=== PATIENT | male | born 2000 | race Hispanic/Latino ===

== ENCOUNTER 2023-09-29 18:54 | Emergency (ER) | payer OTHER, SELFPAY ==
[2023-09-29 18:55] VITALS: BP 147/86; PULSE 104; RESP 17; TEMP 36.8; O2SAT 99; BMI 25.9
--- NOTE | 2023-09-29 19:27 | EX.ED.DYSGE1 ---
HPI History of Present Illness Chief Complaint: Abd Pain Informant: patient Onset/Context/Timing Onset: Yesterday Context: Sudden Onset Timing: Continuous Quality: Tightness Location: Lower chest, upper abdomen Worsened by: Laying down Relieved by: Nothing Narrative Narrative: Patient presents with lower chest and upper abdominal pain that began yesterday. Patient states it began when he woke up yesterday. Patient states it has been constant. Patient describes it as a tightness over his lower chest and upper abdomen. Patient states it radiates into his back. Patient states it is worse when he lays down. Patient states nothing seems to help with it. Patient denies any nausea or vomiting. Patient denies any diarrhea, melena, or hematochezia. Patient denies any dysuria, frequency, or hematuria. Patient does admit to some subjective chills. Patient also admits to a mild cough. Patient denies any PE or cardiac risk factors. PFSH PFS Medical History no medical history no medical history Home Medications ?Medication ?Instructions ?Recorded ?Last Taken ?Type azithromycin 250 mg tablet 250 mg PO DAILY #4 TABLETS 09/29/23 Unknown Rx Allergy/AdvReac Type Severity Reaction Status Date / Time No Known Allergies Allergy Verified 09/29/23 18:55 Surgical History no surgical history no surgical history Social History Smoking Status: Never smoker ROS ROS ED Constitutional Constitutional ED: Reports fever(s) and subjective; Denies chills Eyes Eyes: Denies blurry vision or change in vision ENT ENT ED: Denies rhinorrhea or sore throat Cardiovascular Cardiovascular: Reports chest pain; Denies palpitations Respiratory/Chest Respiratory/Chest: Reports cough; Denies dyspnea Gastrointestinal Gastrointestinal: Reports abdominal pain; Denies nausea or vomiting Genitourinary Genitourinary ED: Denies dysuria or hematuria Musculoskeletal Musculoskeletal: Reports back pain; Denies neck pain Integumentary Denies abscess or rash Neurologic Neurologic: Denies headache(s) or weakness Allergic/Immunologic Allergic/Immunologic ED: Denies mouth swelling or urticaria EXAM Physical Exam Const Vital Signs: 09/29/23 18:55 09/29/23 19:52 Temperature 98.2 F Temperature Source Temporal Pulse Rate 104 H 92 Respiratory Rate 17 19 H Blood Pressure 147/86 H 141/84 H Blood Pressure Mean 106 103 Pulse Ox 99 98 Oxygen Delivery Method Room Air Room Air Positive well nourished and well developed General Appearance ED: well developed and NAD HEENT Reports moist mucous membranes Neck supple and no JVD Resp normal respiratory effort and clear to auscultation bilaterally Cardio regular rate and regular rhythm GI non-distended Palpation: soft and tender epigastric, LUQ and RUQ; Negative for guarding or rebound tenderness present Extremity normal to inspection General Extremety ED: Negative for edema or tenderness General Extremity: Negative for edema Neuro oriented x3, CN's II-XII intact bilaterally and no sensory deficits noted Sensorium / Orientation: alert Motor Exam: strength 5/5 throughout Psych mental status grossly normal MDM MDM MDM Narrative Medical decision making narrative: Differential diagnosis includes cardiac dysrhythmia, cardiac ischemia, pneumonia, pneumothorax, peptic ulcer disease, duodenal ulcer, gastroenteritis, GERD, pancreatitis, and urinary tract infection. EKG will be obtained to assess for cardiac dysrhythmia and cardiac ischemia. Chest x-ray will be obtained to assess for pneumonia and pneumothorax. CBC will be obtained to assess for leukocytosis and anemia. Comprehensive metabolic profile will be obtained to assess for hepatic function, renal function, and electrolyte abnormality. Lipase will be obtained to assess for pancreatitis. High-sensitivity troponin will be obtained to assess for cardiac ischemia. Lab Data Attestation: I reviewed the patient's lab results. Lab results narrative: CBC was reviewed and was within normal limits. Comprehensive metabolic profile was reviewed. Potassium was slightly low at 3.2. High-sensitivity troponin was reviewed and was normal at less than 3. Lipase was reviewed and was normal at 14. Urinalysis was reviewed. There is no evidence of urinary tract infection or hematuria. Urine ketones were 150. Labs: Laboratory Results - last 24 hr 09/29/23 09/29/23 19:40 19:53 WBC 7.9 RBC 5.36 Hgb 15.6 Hct 44.3 MCV 82.6 MCH 29.1 MCHC 35.2 RDW Std Deviation 36.8 RDW Coeff of Jc 12.1 Plt Count 284 MPV 9.7 Immature Gran % (Auto) 0.100 Neut % (Auto) 67.2 Lymph % (Auto) 20.2 [place] % (Auto) 10.1 H Eos % (Auto) 1.9 Baso % (Auto) 0.5 Absolute Neuts (auto) 5.3 Absolute Lymphs (auto) 1.60 Nucleated RBC % 0 Sodium 137 Potassium 3.2 L Chloride 102 Carbon Dioxide 25.0 Anion Gap 10 BUN 16 Creatinine 1.08 Estim Creat Clear Calc 96.82 Est GFR (MDRD) Af Amer 109 Est GFR (MDRD) Non-Af 90 BUN/Creatinine Ratio 14.8 Glucose 137 H Calcium 9.5 Total Bilirubin 1.00 AST 20 ALT 35 Alkaline Phosphatase 105 Troponin I High Sens < 3 L Total Protein 8.2 Albumin 4.1 Globulin 4.1 Albumin/Globulin Ratio 1.0 Lipase 14 Urine Color Yellow Urine Clarity Clear Urine pH 5.0 Ur Specific [place] 1.030 Urine Protein 30 H Urine Glucose (UA) Normal Urine Ketones 150 A* Urine Occult Blood Negative Urine Nitrite Negative Urine Bilirubin Negative Urine Urobilinogen 1 H Ur Leukocyte Esterase Negative Urine RBC 0 SEEN Urine WBC 0-5 SEEN Ur Squamous Epith Cells 0 SEEN Urine Bacteria RARE Urine Mucus 1+ Radiography Chest X-Ray - ED: 2 View, Read by ED Physician, Read by Radiologist and Left Infiltrate Diagnostic Testing: Clinical Impression(s) from Imaging Studies Chest X-Ray 09/29/23 20:10 IMPRESSION: Left perihilar infiltrate. Electronically Signed: Darci Tapia MD at 20:35 EDT , PA and lateral chest x-ray was obtained. There are 2 views. On my independent interpretation, there is a left perihilar infiltrate. There is no pneumothorax. Bony thorax is normal. There is no cardiomegaly noted. Radiologist also interpreted the x-rays and agrees. EKG Initial EKG: Attestation: I personally reviewed and interpreted this EKG as follows: Interpretation: Sinus Rhythm (93) and No Acute Injury Pattern Comments: EKG was obtained. On my independent interpretation, it showed a normal sinus rhythm with a rate of 93. CA interval, QRS interval, and QTc intervals were all normal. [place] was normal. There are no acute ST or T wave changes. Prior EKG tracings: not available for review Prior: No Prior Treatment and Re-Evaluation :: Patient was given IV fluids. Patient was advised of his findings. Patient was given a dose of potassium here. Patient was given a dose of Zithromax here. Patient was given a prescription for Zithromax. Patient was instructed to follow-up with his primary care physician in 5 to 7 days. Patient understood and was agreeable with the plan. All questions were answered. Discharge Plan Triage Chief Complaint: Abd Pain ED Provider: Maycol Castillo Dx/Rx/DC Orders Clinical Impression: Pneumonia, Cough Instructions: ED Pneumonia (Adult) Prescriptions: New azithromycin 250 mg tablet 250 mg PO DAILY Qty: 4 0RF Primary Care Provider: Care Physician,No Primary Referrals: Daly Anderson [Non-Staff] - 5-7 Days Care Physician,No Primary [Primary Care Provider] - Print Language: German Disposition Disposition: Home, Self Care
--- NOTE | 2023-09-29 19:32 | EKG12_ITS ---
Test Reason : DYSRHYTHMIA Blood Pressure : / mmHG Vent. Rate : 093 BPM Atrial Rate : 093 BPM P-R Int : 128 ms QRS Dur : 094 ms QT Int : 358 ms P-R-T Axes : 023 103 050 degrees QTc Int : 445 ms Normal sinus rhythm with sinus arrhythmia Rightward axis Borderline ECG Confirmed by KEYLA DAVIDSON, ASHWIN ([id number]), greeting card editor GALA TRAMMELL ([id number]) on 10/01/2023 9:55:13 AM Referred By: Confirmed By:SHADI RAMIRES MD
[2023-09-29 19:45] LABS: Absolute Neutrophil Count 5.3 X10^3/uL (2.0-7.7); Basophil# 0.04 X10^3/uL; Basophil% 0.5 % (0-1); Eosinophil# 0.15 X10^3/uL; Eosinophils% 1.9 % (0-5); Hematocrit 44.3 % (40-54); Hemoglobin 15.6 g/dL (13.0-16.5); Lymphocyte % 20.2 % (19-41); Mean Corp Hgb Conc 35.2 g/dL (32-36); Mean Corpuscular Hgb 29.1 pg (27.0-32.0); Mean Corpuscular Volume 82.6 fL (80-94); Mean Platelet Vol. 9.7 fl (6.2-12.0); Monocyte% 10.1 % (0-10); NRBC Flagged by Analyzer 0 % (0-5); Neutrophil # 5.31 X10^3/uL (2.7-7.7); Neutrophil % 67.2 % (47-70); Platelet Count 284 K/mm3 (150-450); RBC Distribution Width CV 12.1 % (11.6-14.6); RBC Distribution Width SD 36.8 fl (35.1-43.9); Red Blood Count 5.36 M/mm3 (4.6-6.2); White Blood Count 7.9 K/mm3 (4.4-11.0)
[2023-09-29 19:52] VITALS: BP 141/84; PULSE 92; RESP 19; O2SAT 98
[2023-09-29 20:03] LABS: Red Blood Cells-Urine 0 SEEN /hpf (0-5); Squamous Epithelial Cells - UA 0 SEEN /hpf (0-5)
[2023-09-29 20:08] LABS: AST(SGOT) 20 U/L (15-37); Alanine Aminotransfer ALT/SGPT 35 U/L (16-61); Albumin, Serum 4.1 g/dL (3.2-5.0); Alkaline Phosphatase 105 U/L (45-117); Anion Gap 10 (5-15); BUN 16 mg/dL (7-18); BUN/Creat Ratio 14.8 RATIO (10-20); Calcium,Total 9.5 mg/dL (8.5-10.1); Chloride 102 mmol/L (98-107); Creatinine, Serum 1.08 mg/dL (0.70-1.30); EST Glomerular Filtration Rate 90 mL/min (>60); Est Glom Filt Rate - Afr Amer 109 mL/min (>60); Estimated Creatinine Clearance 96.82 ml/min; Globulin 4.1 g/dL (2.2-4.2); Glucose 137 mg/dL (74-106); Lipase 14 U/L (13-75); Potassium 3.2 mmol/L (3.5-5.1); Protein, Total 8.2 g/dL (6.4-8.2); Sodium Level 137 mmol/L (136-145); Troponin-I HS < 3 pg/mL (3.0-78.0)
[2023-09-29] MEDS: 0.9% Normal Saline (1000mL) 1,000 ML 1000 ML IV (20:10)
--- NOTE | 2023-09-29 20:10 | RAD_ITS ---
EXAM: XR CHEST, 2 VIEWS CLINICAL INDICATION: Pain TECHNIQUE: Frontal and lateral views of the chest. COMPARISON: No relevant prior studies available. FINDINGS: LUNGS AND PLEURAL SPACES: Left perihilar infiltrate. No pneumothorax. No effusion. HEART: Unremarkable. Cardiac silhouette not enlarged. MEDIASTINUM: Central airways and mediastinal contour are unremarkable. BONES/JOINTS: Unremarkable. No acute fracture. SOFT TISSUES: Unremarkable. RAD/Chest PA and Lateral IMPRESSION: Left perihilar infiltrate. Electronically Signed: Darci Tapia MD at 20:35 EDT ,
[2023-09-29 20:12] LABS: Color, Urine Yellow (Yellow); Glucose, Dipstick Normal (Normal); Ketone-Dipstick 150 mg/dl (Negative); Leukocyte Esterase-Dipstick Negative /ul (Negative); Nitrite-Dipstick Negative (Negative); Occult Blood-Urine Negative /ul (Negative); Protein-Dipstick 30 mg/dl (Negative); Urine Bilirubin Dipstick Negative (Negative); Urine Clarity Clear (Clear); Urine Urobilinogen 1 mg/dl (Normal)
[2023-09-29 20:28] LABS: Bacteria RARE /hpf (None Seen); Mucous, Urine 1+ /hpf (<or=2+); White Blood Cells 0-5 SEEN /hpf (0-5)
[2023-09-29] MEDS: Potassium Chloride Oral Tablet 20 MEQ 40 MEQ PO (20:34)
[2023-09-29 21:00] VITALS: BP 134/79; PULSE 79; RESP 16; TEMP 36.7; O2SAT 98
[2023-09-29 21:27] VITALS: BP 134/79; PULSE 90; RESP 16; TEMP 36.7; O2SAT 98
[2023-09-29] MEDS: Azithromycin 250 MG Tablet 500 MG PO (21:27)
== END 2023-09-29 21:28 | disposition home or self-care (01) ==
PROVIDERS: Emergency Provider Emergency Medicine; Visit Provider Emergency Medicine
DX: J18.9 Pneumonia, unspecified organism (principal); R10.9 Unspecified abdominal pain; M54.9 Dorsalgia, unspecified; R05.9 Cough, unspecified
CPT/HCPCS: 71046; 80053; 81001; 83690; 84484; 85025; 93005; 96360; 99285; J7030; A4216